=== PATIENT | male | born 1940 | race Caucasian/White ===

== ENCOUNTER → 2020-11-26 | Outpatient (CLI) | payer OTHER ==
[~2020-11-26] MED LIST: ACETAMINOPHEN325 M1 PO; ALTACE10 MG PO; AMIODARONE HCL400 MG PO; ASA81BEC PO; BRILINTA90 MG PO; ELIQUIS5 MG PO; LASIX 40 MG TAB40 MG PO; LIPITOR40 MG PO; PLAVIX 75 MG TA75 MG PO; TOPROL XL50 MG PO
[2020-11-26 10:14] LABS: ABSOLUTE NEUTROPHILS 8.1 thou/uL (1.4-8.2); BASOPHILS 0.6 % (0.0-2.0); EOSINOPHILS 1.2 % (0.0-3.0); LYMPHOCYTES 10.7 % (24.0-44.0); MCH 27.3 pg (26.0-34.0); MCHC 32.6 g/dL (28.0-37.0); MCV 83.6 fL (80.0-100.0); MONOCYTES 8.8 % (1.0-8.0); PLATELET COUNT 298 thou/uL (150-400); POLYS 78.7 % (36.0-66.0); RBC 5.14 mil/uL (4.50-6.00); RDW 15.7 % (10.5-14.5); WBC 10.3 thou/uL (4.0-11.0)
[2020-11-26 10:32] LABS: ALBUMIN 3.1 g/dL (3.4-5.0); ANION GAP 9 mmol/L (7-16); BUN 28 mg/dL (7-18); CALCIUM 9.3 mg/dL (8.5-10.1); CHLORIDE 106 mmol/L (98-107); CHOLESTEROL 121 mg/dL (<200); CO2 27 mmol/L (21-32); CREATININE 1.6 mg/dL (0.7-1.3); GLUCOSE 92 mg/dL (74-106); HDL CHOLESTEROL 30 mg/dL (>40); LDL CHOLESTEROL 76 mg/dL (<100); POTASSIUM 5.2 mmol/L (3.5-5.1); SGOT 21 U/L (15-37); SGPT 24 U/L (30-65); SODIUM 142 mmol/L (136-145); TOTAL BILIRUBIN 0.8 mg/dL (0.2-1.0); TOTAL PROTEIN 7.6 g/dL (6.4-8.2); TRIGLYCERIDE 77 mg/dL (<150); VLDL 15 mg/dL (<40)
[2020-11-27 00:06] LABS: GLYCOHEMOGLOBIN (HGB A1C) 5.6 % (4.8-5.6)
== END ==
LOC: RAD 09:24
PROVIDERS: ATTEND Nurse Practitioner
DX: I50.20 Unspecified systolic (congestive) heart failure (principal); E78.5 Hyperlipidemia, unspecified; Z13.1 Encounter for screening for diabetes mellitus; K44.9 Diaphragmatic hernia without obstruction or gangrene; R91.8 Other nonspecific abnormal finding of lung field; Z79.899 Other long term (current) drug therapy

== ENCOUNTER → 2020-12-31 | Outpatient (CLI) | payer OTHER ==
[2020-12-31 11:23] LABS: CREATININE 1.3 mg/dL (0.7-1.3)
== END ==
LOC: RAD 10:33
PROVIDERS: ATTEND Internal Medicine
DX: I25.5 Ischemic cardiomyopathy (principal); I10 Essential (primary) hypertension